=== PATIENT | female | born 1980 | race Caucasian/White ===

== ENCOUNTER 2024-10-02 15:32 | Emergency (ER) | payer OTHER, SELFPAY ==
--- NOTE | ~2024-10-02 | XR_ITS ---
EXAMINATION: XR hip RT min 2V DATE: 10/02/2024 16:02 INDICATION: Pain x10 days TECHNIQUE: 2 images of the right hips were obtained. COMPARISON: None. FINDINGS: Mild degenerative change in the right hip. No fracture. No dislocation. No significant degenerative change. IMPRESSION: 1. No fracture identified. If symptoms persist or worsen, consider a short-term follow-up study or additional imaging for further assessment. Reviewed, dictated and finalized at location Q. IMPRESSION: 1. No fracture identified. If symptoms persist or worsen, consider a short-term follow-up study or additio nal imaging for further assessment.
--- NOTE | 2024-10-02 15:34 | ED.GENADULT ---
HPI - General Adult General Chief complaint: Extremity Injury, Lower Stated complaint: leg and hip pain Time Seen by Provider: 10/02/24 15:42 Source: patient, RN notes reviewed and old records reviewed Mode of arrival: ambulatory Limitations: no limitations History of Present Illness HPI narrative: 44-year-old female presents to the [facility] with right leg pain for several weeks. Reports that she has contacted her doctor in regards to the pain in her leg. States it is a deep ache below the knee, to the side. No redness, swelling, injury. Patient reports intermittent numbness and tingling to the leg and 3 of her toes. When this happens and she stands she gets a tingling burning sensation. Denies any back pain or abdominal pain. Patient states it gets worse when she does change positions. Today for the last week she presents with right hip pain. States that it feels like it ?catches when she changes position. Denies injury to the area. Patient has reported taking Tylenol, ibuprofen, gabapentin. Also has tried her 's oxycodone Onset (ago): week(s) Treatments prior to arrival: NSAID Related Data Home Medications ?Medication ?Instructions ?Recorded ?Confirmed ?Last Taken ?Type atorvastatin 40 mg tablet mg 10/02/24 Unknown History dextroamphetamine-amphetamine 20 10/02/24 Unknown History mg tablet esomeprazole magnesium 20 mg 20 mg PO DAILY 10/02/24 10/02/24 Unknown History capsule,delayed release (Nexium) estradiol acetate 0.1 mg/24 hr vaginal 10/02/24 Unknown History vaginal ring (Femring) sertraline 50 mg tablet mg 10/02/24 Unknown History tirzepatide (weight loss) 7.5 7.5 mg subcut WEEKLY 10/02/24 10/02/24 Unknown History mg/0.5 mL subcutaneous pen injector (Zepbound) trazodone 100 mg tablet mg 10/02/24 Unknown History Allergies Allergy/AdvReac Type Severity Reaction Status Date / Time meloxicam Allergy Mild Rash Verified 10/02/24 15:45 Penicillins Allergy Mild Rash Verified 10/02/24 15:45 Sulfa (Sulfonamide Allergy Mild Rash Verified 10/02/24 15:45 Antibiotics) adhesive AdvReac Mild Other Verified 10/02/24 15:45 chlorhexidine AdvReac Mild Other Verified 10/02/24 15:45 Review of Systems Review of Systems: All systems reviewed & are unremarkable except as noted in HPI and below Constitutional: Constitutional: Reports no additional constitutional complaints Musculoskeletal: Musculoskeletal: Reports as per HPI, Denies back pain, Denies myalgias, Reports arthralgias, Denies joint swelling, Denies limited range of motion, Reports numbness and Reports tingling Integumentary/Breasts: Skin/Breast: Reports system reviewed and no additional complaints, except as docu PMFSH Comments At the time of my signature, I reviewed and agree with the nursing past medical, surgical, social, and family history. There is no relevant family history pertinent to the patient complaint. Exam Const: General: cooperative, healthy appearing, comfortable, no acute distress, well developed, alert and well nourished Nutritional Appearance: well nourished and obese Orientation/consciousness: patient oriented x3 Limitations: no limitations HENMT: Head: normal to inspection Eyes: General: appearance normal, both eyes and all related structures Alignment and Position: alignment normal Neck: Neck: normal visual inspection, full ROM, no lymphadenopathy and no meningeal signs Chest: Chest palpation & inspection: normal inspection of the chest Resp: Effort & Inspection: normal respiratory effort and able to speak in complete sentences Cardio: Rate: regular rate GI: GI Palp: No abdominal tenderness Back/Spine/Pelvis: Back: No erythema, No warmth, No sacral edema, No ecchymosis and No back tenderness Thoracic/Lumbar Spine: No thoracic spinal tenderness and No lumbar spinal tenderness Skin: General skin exam: normal color and no rashes or lesions noted Rashes: no rashes Neuro: General: patient oriented x3, gait normal, moves all extremities and no meningeal signs Cognition (Neuro): normal cognition Speech: normal speech Gait exam (Neuro): Normal gait present Extrem: General: normal to inspection, full ROM, capillary refill normal and normal gait Right lower extremity: normal to inspection, full ROM, hip/thigh Details: tenderness (Anterior) and normal ROM; no abrasions, no lacerations and no ecchymosis, lower leg Details: normal to inspection and no edema; no erythema, no tenderness, no localized swelling, no abrasions, no lacerations and no ecchymosis and ankle Details: normal to inspection, no edema and normal ROM; no swelling; no edema Psych: Appearance: grossly normal and well kempt Mental Status: mental status grossly normal Speech and movement: Normal speech and movement present and Clear speech present Affect: normal affect Attitude: cooperative Course Course Level of Care: Express Care Visit Vital Signs Vital signs: Vital Signs Temperature 97.6 F 10/02/24 15:43 Pulse Rate 100 10/02/24 15:43 Respiratory Rate 18 10/02/24 15:43 Blood Pressure 136/84 10/02/24 15:43 Pulse Oximetry 100 10/02/24 15:43 Oxygen Delivery Room Air 10/02/24 15:43 Temperature 97.6 F 10/02/24 15:43 Pulse Rate 100 10/02/24 15:43 Respiratory Rate 18 10/02/24 15:43 Blood Pressure 136/84 10/02/24 15:43 Pulse Oximetry 100 10/02/24 15:43 Oxygen Delivery Room Air 10/02/24 15:43 Reviewed Medical Decision Making MDM Narrative Medical decision making narrative: Patient sitting comfortably in exam room. Nontoxic, vitals stable. Patient in no acute distress Patient presents with several weeks of right leg pain, 1 week of right hip pain Patient's x-ray shows no acute findings of the hip. Patient is appropriate for outpatient treatment with close follow-up Discharge instructions reviewed with patient, as well as provided in writing per nursing staff. The instructions also include specific and strict return/GO TO THE ER as well as f/u information. All questions have been answered, and the patient deny any further questions with discharge and discharge plan. Some parts of this dictation were generated by voice recognition software and may contain typographical and/or grammatical inaccuracies. Differential Diagnosis Differential Diagnosis: Arthritis, ligament impingement, neuropathy Medical Records Medical records reviewed: Yes I reviewed the external patient's medical records. Vital Signs Vital Signs: Vital Signs Temperature 97.6 F 10/02/24 15:43 Pulse Rate 100 10/02/24 15:43 Respiratory Rate 18 10/02/24 15:43 Blood Pressure 136/84 10/02/24 15:43 Pulse Oximetry 100 10/02/24 15:43 Oxygen Delivery Room Air 10/02/24 15:43 Temperature 97.6 F 10/02/24 15:43 Pulse Rate 100 10/02/24 15:43 Respiratory Rate 18 10/02/24 15:43 Blood Pressure 136/84 10/02/24 15:43 Pulse Oximetry 100 10/02/24 15:43 Oxygen Delivery Room Air 10/02/24 15:43 Reviewed Lab Data Lab results reviewed: Yes I reviewed the patient's lab results. Labs: Reviewed Imaging Data Radiologist's impression: EXAMINATION: XR hip RT min 2V DATE: 10/02/2024 16:02 INDICATION: Pain x10 days TECHNIQUE: 2 images of the right hips were obtained. COMPARISON: None. FINDINGS: Mild degenerative change in the right hip. No fracture. No dislocation. No significant degenerative change. IMPRESSION: 1. No fracture identified. If symptoms persist or worsen, consider a short-term follow-up study or additional imaging for further assessment. Critical Care Time Critical Care Time Critical Care Time: No Discharge Plan Discharge Clinical Impression: Hip pain, right Patient Disposition: Home Condition: Stable Instructions: Antibiotic Form, Hip Pain (ED) Additional Instructions: Follow-up with your primary care provider for further evaluation, testing and treatment if symptoms persist Take Motrin alternating with Tylenol as needed for pain Patient Language: Estonian Prescriptions: No Action atorvastatin 40 mg tablet trazodone 100 mg tablet dextroamphetamine-amphetamine 20 mg tablet sertraline 50 mg tablet Femring 0.1 mg/24 hr ring VAGINAL esomeprazole magnesium [Nexium] 20 mg capsule,delayed release(DR/EC) 20 mg PO DAILY Zepbound 7.5 mg/0.5 mL pen injector 7.5 mg subcut WEEKLY Follow-up/Referrals: UNKNOWN,DOCTOR [Non-Staff] Time of Disposition: 16:28
--- OUTSIDE RECORDS SUMMARY | 2024-10-02 15:41 | XMS_ITS | Clinical Summary ---
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 Name Role Phone Maris Hall MD Unavailable [phone] Jesus Devries Primary Care Provider [phone] Allergies Active Allergy Reactions Criticality Noted Date Comments Adhesive Tape-Silicones Other (See comments),Swelling Medium 12/24/2020 Blistering and welts/redness Chlorhexidine Rash Medium 10/14/2020 redddness and heat to skin x 3 days Meloxicam Itching Low 06/11/2015 Penicillin G Itching Low 01/23/2006 Cefazolin administered 11/08/2020 Sulfa (Sulfonamide Antibiotics) Other (See comments) Low 04/29/2008 Pt never had-mother is allergic Medications Space Chamber with Medium Mask spacer as directed 01/30/[address] (NexIUM) 40 mg capsuleIndication s:Gastroesophagea l reflux disease with esophagitis without hemorrhage Take 1 capsule (40 mg total) by mouth daily before breakfast 90 capsule 1 03/24/19 22 Active medroxyPROGESTERo ne (PROVERA) 10 mg tablet Take 1 tablet (10 mg total) by mouth daily 11/03/19 22 Active Femring 0.1 mg/24 hr ring INSERT VAGINALLY EVERY 3 (THREE) MONTHS FOR 4 DOSES 12/27/19 22 Active albuterol HFA (PROVENTIL HFA,VENTOLIN HFA,PROAIR HFA) 90 mcg/actuation inhalerIndication s:Mild intermittent asthma without complication Inhale 1-2 puffs every 6 (six) hours as needed for wheezing or shortness of breath 1 each 2 09/21/19 23 Active sertraline (ZOLOFT) 50 mg tablet Take 1 tablet (50 mg total) by mouth daily Active pen needle, diabetic 32 gauge x needleIndications :DM type 2 with diabetic dyslipidemia (HCC) Once weekly 4 each 2 01/18/20 23 Active dulaglutide (TRULICITY) 1.5 mg/0.5 mL pen injectorIndicatio ns:DM type 2 with diabetic dyslipidemia (HCC) Inject 0.5 mL (1.5 mg total) under the skin every 7 days 2 mL 1 01/27/20 23 Active Trulicity 0.75 mg/0.5 mL pen injectorIndicatio ns:DM type 2 with diabetic dyslipidemia (HCC) INJECT 1 SYRINGE SUBCUTANEOUSLY ONCE A WEEK 4 mL 02/19/19 24 Active dextroamphetamine -amphetamine (ADDERALL) 20 mg tabletIndications :Attention deficit hyperactivity disorder (ADHD), predominantly inattentive type Take 1 tablet (20 mg total) by mouth 2 (two) times a day 60 tablet 04/06/19 24 Active Active Problems Problem Noted Date Diagnosed Date PTSD (post-traumatic stress disorder) 09/20/2022 Assessment & Plan (09/20/2022 12:46 PM CDT): Chronic condition not well controlled Start Lexapro 10 mg Abnormal uterine bleeding (AUB) 11/07/2021 Overview (03/01/2022): On HRT Postoperative hypotension 11/07/2021 Overview (03/01/2022): In October 2020, after BSO and mastectomy procedure COVID-19 10/21/2021 Fatty liver 03/24/2021 Allergic rhinitis 10/15/2020 Uncomplicated asthma 10/15/2020 Type 2 diabetes mellitus without complications 0 10/15/2020 Assessment & Plan (09/20/2022 12:29 PM CDT): Chronic Decrease ozempic 1mg 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 Assessment & Plan (07/29/2020 11:03 AM CDT): Chronic condition uncontrolled Increase nexium to 40mg COVID-19 virus infection 01/29/2020 Assessment & Plan (01/29/2020 2:54 PM BEND UP): intial diagnosis 01/06/2020 GERD (gastroesophageal reflux disease) 0 Assessment & Plan (11/18/2019 1:54 PM CDT): Well controlled on current regimen, no rx changes needed. Continue lifestyle modifications Assessment & Plan (08/21/2019 4:31 PM CDT): Well controlled on current regimen, no rx changes needed. Continue lifestyle modifications Dyslipidemia 08/21/2019 Assessment & Plan (11/29/2021 4:57 PM CDT): Chronic condition ldl 91 at most recent Order lipid panel in 3mo Assessment & Plan (08/21/2019 4:39 PM CDT): Start vascepa Lipid in 6mo copay card Mild intermittent asthma without complication Assessment & Plan (04/03/2019 2:44 PM BEND UP): Well controlled on current regimen, no rx changes needed. Continue lifestyle modifications RADHA (generalized anxiety disorder) 04/03/2019 Assessment & Plan (11/08/2022 11:11 PM CDT): Chronic stable but not at goal Continue Lexapro Start Vraylar Assessment & Plan (03/05/2022 9:44 PM BEND UP): Chronic stable improved with use of buspirone continue current dosing regimen Assessment & Plan (11/29/2021 5:00 PM CDT): Chronic and stable Continue and refill buspar Assessment & Plan (07/13/2021 1:10 PM CDT): Chronic condition Stable but persist Continue buspar Assessment & Plan (03/24/2021 4:44 PM BEND UP): Chronic condition not well controlled Increase BuSpar to 7.5 mg t.i.d. Assessment & Plan (12/02/2020 1:55 PM CDT): Chronic condition stable on BuSpar Continue to monitor. Assessment & Plan (07/22/2020 10:34 AM CDT): Chronic condition stable well controlled continue BuSpar Assessment & Plan (11/18/2019 1:54 PM CDT): Well controlled on current regimen, no rx changes needed. Continue lifestyle modifications Assessment & Plan (08/21/2019 4:31 PM CDT): Well controlled on current regimen, no rx changes needed. Continue lifestyle modifications Assessment & Plan (04/03/2019 2:44 PM BEND UP): Well controlled on current regimen, no rx changes needed. Continue lifestyle modifications Vitamin D deficiency 04/03/2019 Assessment & Plan (11/29/2021 4:59 PM CDT): Chronic Order vit d level in 3mo Assessment & Plan (04/03/2019 2:44 PM BEND UP): Well controlled on current regimen, no rx changes needed. Continue lifestyle modifications DM type 2 with diabetic dyslipidemia 04/03/2019 Assessment & Plan (01/17/2023 3:30 PM BEND UP): Chronic and experiencing poor control with elevation since not being on ozempic We will restart ozempic 1mg Repeat A1c in 3mo Once restart ozempic will d/c metformin Assessment & Plan (05/30/2022 4:15 PM CDT): Chronic stable D/c metformin Increase ozempic 2mg Assessment & Plan (03/05/2022 9:44 PM BEND UP): Chronic conditions stable reports no hypoglycemia Refill metformin Assessment & Plan (11/29/2021 4:58 PM CDT): Chronic last a1c 5.1 Order a1c in 3mo Continue with ozempic Refill today Assessment & Plan (07/13/2021 1:09 PM CDT): Chronic conditon Stable and well controlled with a1c 5.1 Assessment & Plan (03/24/2021 4:44 PM BEND UP): Chronic condition historically under good control last A1c 5.7 Order A1c continue with current regimen Assessment & Plan (12/02/2020 1:55 PM CDT): Chronic condition well-controlled last A1c 5.0 continue with current regimen of metformin and Ozempic. Assessment & Plan (07/22/2020 10:34 AM CDT): Chronic condition well-controlled A1c 5.7%. Assessment & Plan (04/15/2020 4:20 PM BEND UP): Chronic uncontrolled Order hga1c Start ozempic Assessment & Plan (08/21/2019 4:38 PM CDT): Start metfromin 850mg every day [id number] 6mo Assessment & Plan (04/03/2019 2:44 PM BEND UP): Well controlled on current regimen, no rx changes needed. Continue lifestyle modifications Disorder of refraction and accommodation 017 Female infertility 03/03/2014 Family history of malignant neoplasm of breast 0 03/28/2013 Overview (04/03/2019): Breast and ovarian cancers at an early age on maternal side of her family Family history of malignant neoplasm of breast 0 03/28/2013 Overview (03/24/2021): Breast and ovarian cancers at an early age on maternal side of her family ADHD (attention deficit hyperactivity disorder) 11/18/2012 Assessment & Plan (05/30/2022 4:17 PM CDT): Chronic condition stable well controlled Continue Adderall Assessment & Plan (03/05/2022 9:44 PM BEND UP): Chronic condition Well-controlled Continue Adderall. Refill appropriate dates Assessment & Plan (11/29/2021 5:02 PM CDT): Chronic and stable with adderall Continue and refill adderall Assessment & Plan (07/13/2021 1:07 PM CDT): Chronic condition Well controlled with adderall Refill meds Assessment & Plan (03/24/2021 4:44 PM BEND UP): Chronic conditions stable well controlled Refill Adderall Assessment & Plan (12/02/2020 1:55 PM CDT): Chronic and stable Continue Nexium. Assessment & Plan (07/22/2020 10:20 AM CDT): Chronic condition stable and well controlled Refill meds as date indicates Assessment & Plan (01/29/2020 3:04 PM BEND UP): Refill adderall Assessment & Plan (11/18/2019 1:54 PM CDT): Well controlled on current regimen, no rx changes needed. Continue lifestyle modifications Assessment & Plan (08/21/2019 4:32 PM CDT): Well controlled on current regimen, no rx changes needed. Continue lifestyle modifications Assessment & Plan (04/03/2019 2:44 PM BEND UP): Well controlled on current regimen, no rx changes needed. Continue lifestyle modifications PCOS (polycystic ovarian syndrome) 11/18/2012 Resolved Problems Problem Noted Date Diagnosed Date Resolved Date S/P bariatric surgery 03/24/20212021 Assessment & Plan (03/24/2021 4:45 PM BEND UP): Order labs to evaluate Biceps rupture, distal, left, sequela 11/01/2015 08/21/2019 Cubital tunnel syndrome, left 09/16/2015 08/21/2019 Low back pain 11/26/2014 08/21/2019 Immunizations Immunization Administration Dates Next Due H1N1 All Forms 12/25/2008 Influenza LAIV (Nasal) 12/15/2003 Influenza, Live, Intranasal, Quadrivalent 12/15/2003 Influenza, Quadrivalent, Spl it, Preservative Free, Intramuscular 11/09/2021,11/10/2008,11/19/2007,01/24,12/11/2002 Influenza, Trivalent, Preser vative Free, Intramuscular 11/10/2008,11/19/2007,01/24/2006,12/11 Influenza, Unspecified 01/17/2023(Deferr ed: Patient decision),04/03/2019(Deferred: Patient Refused) OPV 09/01/1985 PPD TEST 06/11/2003,08/26/2002,09/01/1985 Pneumococcal Polysaccharide PPV23 03/10/2009 TD Preservative Free 09/01/1985 Tdap 09/27/2016 Surgical History Surgery Date Site/Laterality Comments WISDOM TOOTH EXTRACTION 02/12/2018 - 02/11/2019 MASTECTOMY COMPLETE / SIMPLE 02/13/2020 - 02/11/2021 Alfonso ateral OVARY SURGERY 02/13/2020 - 02/11/2021 Bilateral BREAST SURGERY 11/10/2020 HYSTERECTOMY 11/10/2020 Medical History Medical History Date Comments Anxiety ADHD (attention deficit hyperactivity disorder) PCOS (polycystic ovarian syndrome) GERD (gastroesophageal reflux disease) Asthma Menstrual problem Covid-19 Diabetes mellitus (HCC) Family History Medical History Relation Name Comments No Known Problems Brother 1 No Known Problems Brother 2 No Known Problems Daughter Depression Father carrie Kidney disease Maternal Grandfather sonya No Known Problems Maternal Grandmother Depression Mother benoit Hyperlipidemia Mother benoit Hypertension Mother benoit Diabetes Paternal Grandfather sonya Heart attack Paternal Grandfather sonya Heart disease Paternal Grandfather sonya Diabetes Paternal Grandmother michaela No Known Problems Son Relation Name Status Comments Brother 1 Alive Brother 2 Alive Daughter Alive Father carrie Alive Maternal Grandfather sonya Maternal Grandmother Mother benoit Alive Paternal Grandfather sonya Paternal Grandmother michaela Alive Son Alive Social History Tobacco Use Types Packs/Day Years Used Date Smoking Tobacco: Never Smokeless Tobacco: Never Alcohol Use Standard Drinks/Week Comments Not Currently 0 (1 standard drink = 0.6 oz pur e alcohol) AUDIT-C Answer Date Recorded Q1: How often do you have a drink containing alcohol? Never 09/20/2022 Q2: How many drinks containi ng alcohol do you have on a typical day when you are drinking? Patient does not drink Q3: How often do you have si x or more drinks on one occasion? Never 09/20/2022 PHQ-2 Answer Date Recorded PHQ-2 Total Score (If total score is 3 or more points, staff should administer the PHQ-9) 0 03/01/2022 Personal Safety Answer Date Recorded Getting School Help Needed Not on file 01/23 Comments Unknown Sex and Gender Information Value Date Recorded Sex Assigned at Not on file Legal Sex Female 12:02 PM BEND UP Gender Identity Female 08/21/2019 2:02 PM CDT Sexual Orientation Not on file Obstetrics History Last Filed Vital Signs Vital Sign Reading Time Taken Comments Blood Pressure 128/72 09/20/2022 11:45 AM CDT Pulse 105 09/20/2022 11:45 AM CDT Temperature 36.2 C (97.1 F) 09/20/2022 11:45 AM CDT Respiratory Rate 21 09/20/2022 11:45 AM CDT Oxygen Saturation 99% 09/20/2022 11:45 AM CDT Inhaled Oxygen Concentration - - Weight 79.5 kg (175 lb 4.8 oz) 09/20/2022 11:45 AM CDT Height 162.6 cm (5' 4) 09/20/2022 11:45 AM CDT Body Mass Index 30.09 09/20/2022 11:45 AM CDT Plan of Treatment Health Maintenance Due Date Last Done Comments Foot Exam 1980 Hepatitis B Screening 02/04/1998 Varicella Vaccines (1 of 2 - 13+ 2-dose series) 01/12/2004 HPV Vaccines (1 - 3-dose SCD M series) 02/04/2007 Pneumococcal vaccine <65 (2 of 2 - PCV) 03/10/2010 03/10/2009 Dilated Eye Exam 05/18/2022 05/18/2021 Depression Screening 03/01/2023 03/01/2022, 03/24/2021, 12/02/2020, Additional history exists eGFR 05/28/2023 05/27/2022 Regular Well Visit/Exam 18-64 09/21/2023 09/20/2022 Covid-19 Vaccine (3 - 2023-2 5 season) 2023 03/08/2020, 02/09/2020 Hemoglobin A1C 10/21/2023 04/20/2023, 041 06/2022, 07/03/2020, Additional history exists Albumin Creatinine Ratio, Urine 04/19/2024 Lipid Panel 04/19/2024 04/20/2023, 0406/2022, 05/30/2021, Additional history exists Influenza Vaccine (#1) 2024 2, 11/10/2008, 11/10/2008, Additional history exists DTaP/Tdap/Td Vaccine (2 - Td or Tdap) 09/27/2026 09/27/2016, 09/01/1985 Cervical Cancer Screening Discontinued 10/27/2018 Breast Cancer Screening-Mammogram Discontinued 05/14/2020, 05/14/2020, 11/01/2018, Additional history exists Hepatitis C Screening Completed 07/03/2020 Procedures Procedure Name Priority Date/Time Associated Diagnosis Comments EGFR Routine 05/27/2022 9:10 AM CDT DM type 2 with diabetic dyslipidemia (HCC) Dyslipidemia HEMOGLOBIN A1C Routine 05/27/2022 9:10 AM CDT DM type 2 with diabetic dyslipidemia (HCC) Dyslipidemia LIPID PANEL Routine 05/27/2022 9:10 AM CDT DM type 2 with diabetic dyslipidemia (HCC) Dyslipidemia DIABETIC EYE EXAM Routine 05/18/2021 HEPATITIS PANEL, ACUTE Routine 07/03/2020 10:26 AM CDT Elevated liver enzymes HM MAMMOGRAPHY Routine 05/14/2020 HM PAP SMEAR WITH HPV Routine 10/27/2018 from Last 3 Months or Most Recently Relevant to Health Maintenance Results * eGFR (05/27/2022 9:10 AM CDT) eGFR 111 mL/min/1. 73 m2 VERONICA MARTINEZ Comment: Interpretive Data Reference Interval Normal >/= 90 mL/min/1.73m2 Mildly decreased* 60 - 89 mL/min/1.73m2 Mildly to moderately decreased 45 - 59 mL/min/1.73m2 Moderately to severely decreased 30 - 44 mL/min/1.73m2 Severely decreased 15 - 29 mL/min/1.73m2 Kidney Failure < 15 mL/min/1.73m2 *Relative to young adult level Estimated glomerular filtration rate is determined by the 2020 CKD-EPI equation recommended by the National Kidney Foundation (A Unifying Approach to GFR Estimation: Recommendations of the NKF-ASK Task Force on Reassessing the Inclusion of Race in Diagnosing Kidney Disease, JASN 2020). The CKD-EPI equation should not be used for patients with unstable renal function and has not been validated in children and those over 70. Current interpretive data was last reviewed 2020. Testing performed by: [facility], [address] [place] [address], [place]., [address] Blood 05/27/2022 9:10 AM CDT 05/27/2022 9:29 AM CDT us [facility] BLOOD ORDERABLES Final Resu lt VERONICA MARTINEZ [address] [facility] Department [place] [address] * Hemoglobin A1c (05/27/2022 9:10 AM CDT) Hgb A1C 5.1 4.0 - 5.6 % VERONICA Comment:Testing performed by : [address] [address] Estimated Average Glucose 100 mg/dL VERONICA Comment: The ADA recommends reporting an estimated Average Glucose (eAG) with all Hemoglobin A1c results using the equation derived from a study of 507 normal and diabetic adults. Minority populations were underrepresented and children were not included. (Diabetes Care 31:0015-7753, 2008). The eAG is not equivalent to a fasting glucose. Testing performed by: [address] [address] Blood 05/27/2022 9:10 AM CDT 05/27/2022 9:29 AM CDT us [facility] BLOOD ORDERABLES Final Resu lt [facility] [address] [facility] [employer] [place] [address] * Lipid panel (05/27/2022 9:10 AM CDT) Pathologist [facility] Cholesterol 180 30 - 199 mg/dL VERONICA Comment: Interpretive Data Ages < or = 19 years Acceptable: <170 mg/dL Borderline high: 170-199 mg/dL High: >or= 200 mg/dL Ages > or = 20 years Desirable: <200 mg/dL Borderline high: 200-239 mg/dL High: >or= 240 mg/dL Literature References: 1. Expert Panel on Integrated Guidelines for Cardiovascular Health and Risk Reduction in Children and Adolescents. Pediatrics 2011;128:S213 2. NCEP Expert Panel. Circulation 2004;110:227 Current Interpretive Data was last revised on 2017. Testing performed by: [address] [address] Triglycerides 94 <=149 mg/dL VERONICA Comment: Interpretive Data Ages < or = 9 years Acceptable: <75 mg/dL Borderline high: 75-99 mg/dL High: >or= 100 mg/dL Ages 10 to 20 years Acceptable: <90 mg/dL Borderline high: 90-129 mg/dL High: >or= 130 mg/dL Ages > or = 20 years Desirable: <150 mg/dL Borderline high: 150-199 mg/dL High: 200-499 mg/dL Very high: >or= 499 mg/dL Literature References: 1. Expert Panel on Integrated Guidelines for Cardiovascular Health and Risk Reduction in Children and Adolescents. Pediatrics 2011;128:S213 2. NCEP Expert Panel. Circulation 2004;110:227 Current Interpretive Data was last revised on 2017. Testing performed by: [address] [address] HDL 44 >=40 mg/dL VERONICA Comment: Interpretive Data Ages < or = 19 years Acceptable: >45 mg/dL Borderline low: 40-45 mg/dL Low: <40 mg/dL Ages > or = 20 years Desirable: >or= 60 mg/dL Low: <40 mg/dL Literature References: 1. Expert Panel on Integrated Guidelines for Cardiovascular Health and Risk Reduction in Children and Adolescents. Pediatrics 2011;128:S213 2. NCEP Expert Panel. Circulation 2004;110:227 Current Interpretive Data was last revised on 2017. Testing performed by: [address] [address] LDL, calculated 117 <=129 mg/dL VERONICA Comment: Interpretive Data Ages < or = 19 years Acceptable: <110 mg/dL Borderline high: 110-129 mg/dL High: >or= 130 mg/dL Ages > or = 20 years Optimal: <100 mg/dL Near optimal: 100-129 mg/dL Borderline high: 130-159 mg/dL High: >160 mg/dL Literature References: 1. Expert Panel on Integrated Guidelines for Cardiovascular Health and Risk Reduction in Children and Adolescents. Pediatrics 2011;128:S213 2. NCEP Expert Panel. Circulation 2004;110:227 Current Interpretive Data was last revised on 2017. Testing performed by: [address] [address] Non-HDL Cholesterol 136 mg/dL VERONICA Comment: Interpretive Data Ages < or = 19 years Acceptable: <120 mg/dL Borderline high: 120-144 mg/dL High: >145 mg/dL Ages > or = 20 years When triglycerides are >200 mg/dL, Non-HDL cholesterol is a secondary target of therapy with treatment goals that are 30 mg/dL greater than the LDL cholesterol target. Literature References: 1. Expert Panel on Integrated Guidelines for Cardiovascular Health and Risk Reduction in Children and Adolescents. Pediatrics 2011;128:S213 2. NCEP Expert Panel. Circulation 2004;110:227 Current Interpretive Data was last revised on 2017. Testing performed by: [facility], [address] [place] [address]., [address] Chol/HDL ratio 4 VERONICA Comment:Testing performed by : [address] [address] Blood 05/27/2022 9:10 AM CDT 05/27/2022 9:29 AM CDT Jesus ROMERO [facility] BLOOD ORDERABLES Final Resu lt VERONICA [address] [facility] Department [place] [address] * Diabetic Eye Exam (05/18/2021) Historical Provider MD HEALTH MAINTENANCE Final Result * Hepatitis panel, acute (07/03/2020 10:26 AM CDT) HepBsAg NONREACT NONREACTIVE [facility] Comment: Siemens CentaurXP using CAT (chemiluminescent immunoassay) technology. NONREACTIVE: IgM antibodies to Hepatitis B Surface antigen not detected. REACTIVE: IgM antibodies to Hepatitis B Surface antigen detected. Reactive results will be confirmed by neutralization testing. HBsAb qn 3.86 mIU/mL [facility] Comment: Siemens CentaurXP using CAT (chemiluminescent immunoassay) technology. 9.99 IU/L or less.....NONREACTIVE: IgM antibodies to Hepatitis B Surface antibody are not detected. 10.00 IU/L or greater..REACTIVE: IgM antibodies to Hepatitis B Surface antibody are detected. Hep B core IgM NONREACT NONREACTIVE [facility] Comment: Siemens CentaurXP using CAT (chemiluminescent immunoassay) technology. NONREACTIVE: IgM antibodies to Hepatitis B Core antigen not detected. EQUIVOCAL: IgM antibodies to Hepatitis B Core antigen may or may not be present. Obtain a new specimen and retest. REACTIVE: IgM antibodies to Hepatitis B Core antigen detected. Hep A IgM NONREACT NONREACTIVE [facility] Comment: Siemens CentaurXP using CTA (chemiluminescent immunoassay) technology. NONREACTIVE: IgM antibodies to Hepatitis A not detected. This does not exclude possibility of exposure to Hepatitis A or early acute infection. EQUIVOCAL:IgM antibodies to Hepatitis A may or may not be present. Suggest recollection and retest. REACTIVE: Antibodies to Hepatitis A detected. Hep C Ab NONREACT NONREACTIVE [facility] Comment: Siemens CentaurXP using CAT (chemiluminescent immunoassay) technology. NONREACTIVE: Antibodies to Hepatitis C not detected. This does not exclude early acute Hepatitis C infection, possibility of exposure to Hepatitis C, antibodies below detection limit, or to lack of antibody reactivity to the antigen used in this assay. EQUIVOCAL: Antibodies to Hepatitis C may or may not be present. Sample to be confirmed by real-time PCR method. REACTIVE: Antibodies to Hepatitis C detected.Sample to be confirmed by real-time PCR method. Blood specimen (specimen) 07/03/2020 10:26 AM CDT 07/03/2020 10:46 AM CDT Narrative Resulting Agency Comment CLI [facility] MICROBIOLOGY - GENERAL ADIS ROBERTS Final Result [place] [place], [place] [id number] [place] [address] * MAMMOGRAPHY (05/14/2020) Historical Provider HEALTH MAINTENANCE Final Result * PAP SMEAR WITH HPV (10/27/2018) Pap smear Normal Historical Provider HEALTH MAINTENANCE Final Result from Last 3 Months or Most Recently Relevant to Health Maintenance Insurance [facility] Member Subscriber Plan / Payer (Ef fective 2023-Present) Name:Chata Day Relation to Subscriber:Self Name:Chata Day Payer ID:[id number] (NAIC) Type: ALLIANCE Address: [address] [place] [id number] Care Teams 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
--- OUTSIDE RECORDS SUMMARY | 2024-10-02 15:41 | XMS_ITS | Encounter Summary ---
Author Organization [facility] Address [address] [place] [address] Care Team Providers Care Taxation Agent Name Role Phone Angela Peña LINER CHECKER Primary Care Provider [phone] Meena Mireles LINER CHECKER Primary Care Provider [phone] None, Provider MD Primary Care Provider Unavaila ble Encounter Details Date Type Department Care Team (Late st Contact Info) Description 04/25/2023 [employer] Message [facility] [id number] [place] [address] Angela Peña, LINER CHECKER [address] [place] [id number] Dexcom auth Social History Tobacco Use Types Packs/Day Years Used Date Smoking Tobacco: Never Passive Smoke Exposure: Past Smokeless Tobacco: Never Alcohol Use Standard Drinks/Week Comments No 0 (1 standard drink = 0.6 oz pur e alcohol) AUDIT-C Answer Date Recorded Frequency of Alcohol Consumption Never 03/07/2018 Average Number of Drinks Not on file 019 Frequency of Binge Drinking Not on file 02/13 Comments No Sex and Gender Information Value Date Recorded Sex Assigned at Female 08/25/2024 8:01 PM CDT Legal Sex Female 4:02 PM RN ADMIT Gender Identity Female 08/25/2024 8:01 PM CDT Sexual Orientation Not on file documented as of this encounter Plan of Treatment Not on file documented as of this encounter Visit Diagnoses Not on filedocumented in this encounter Care Teams Taxation Agent Relationship Specialty Start Date End Date Angela Peña NP PCP - General 04/22/23 09/27/23 Meena Mireles NP PCP - General NURSE PRACTITIONER 09/28/23 07/31/24 None, Provider, PCP - General UNKNOWN PHYSICIAN SPECIALTY 08/25/24 documented as of this encounter
--- OUTSIDE RECORDS SUMMARY | 2024-10-02 15:41 | XMS_ITS | Encounter Summary ---
Author Organization [facility] Address [address] [place] [address] Care Team Providers Care Contact Lens Manufacturer Name Role Phone Angela Peña QUICK SKETCH ARTIST Primary Care Provider [phone] Meena Mireles QUICK SKETCH ARTIST Primary Care Provider [phone] None, Provider MD Primary Care Provider Unavaila ble Encounter Details Date Type Department Care Team (Late st Contact Info) Description 05/24/2023 [employer] Message [facility] [id number] [address] [place] [address] Angela Peña QUICK SKETCH ARTIST [address] [place] [address] referral endo Social History Tobacco Use Types Packs/Day Years [...] PM CDT 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
--- OUTSIDE RECORDS SUMMARY | 2024-10-02 15:41 | XMS_ITS | Encounter Summary ---
Author Organization [facility] Address [address] [place] [address] Care Team Providers Care [place] Name Role Phone Angela Peña EGG PASTEURIZER Primary Care Provider Meena Mireles EGG PASTEURIZER Primary Care Provider [phone] None, Provider Primary Care Provider Unavaila ble Encounter Details Date Type Department Care Team (Late st Contact Info) Description 06/04/2023 [employer] Message [facility] [id number] [place] [address] Angela Peña EGG PASTEURIZER [address] [place] [address] Metformin Social History Tobacco Use Types Packs/Day Years [...] PM CDT 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
--- OUTSIDE RECORDS SUMMARY | 2024-10-02 15:41 | XMS_ITS | Clinical Summary ---
Author Organization [facility] Address [address] [place] [address] Care Team Providers Care [place] Attorney Name Role Phone Lola Aguirre MD Primary Care Prov ider Allergies Active Allergy Reactions Criticality Noted Date Comments Adhesive Tape-Silicones Other (See Comments),Swelling Medium 12/24/2020 Blistering and welts/redness Chlorhexidine Rash Medium 10/14/2020 redddness and heat to skin x 3 days redddness and heat to skin x 3 days redddness and heat to skin x 3 days redddness and heat to skin x 3 days Duloxetine Other (See Comments) Low 05/01/2012 unk Meloxicam Itching Low 06/11/2015 Penicillin G Itching Low 01/23/2006 Cefazolin administered 11/08/2020 Sulfa (Sulfonamide Antibiotics) Other (See Comments),Hives High 04/29/2008 Pt never had-mother is allergic Medications dextroamphetamine- amphetamine (ADDERALL) 20 mg tablet Take 40 mg by mouth daily. Active dextroamphetamine- amphetamine (ADDERALL) 20 mg tablet Take 20 mg by mouth 2 times daily. 08/08/19 23 Active ergocalciferol (VITAMIN D2) 50,000 unit capsule Take 50,000 Units by mouth. 03/01/19 23 Active sertraline (ZOLOFT) 50 mg tablet Take 1 Tablet (50 mg) by mouth daily in the morning. 90 Tablet 1 4:09 PM CDT 11/13/19 24 Active Additional Information Patient not taking.Reported on 09/02/2024 gabapentin (NEURONTIN) 100 mg capsule Take 1 Capsule (100 mg) by mouth daily at bedtime. 30 Capsule 4 5:34 PM SCREED PERSON 01/03/20 24 Active Estradiol Acetate (Femring) 0.1 mg/24 hr Ring Insert 1 ring vaginally every 3 months as directed 1 Each 3 5 11:37 AM CDT 03/10/19 25 Active medroxyPROGESTERon e (PROVERA) 10 mg tablet Take 10 mg by mouth. 11/27/19 24 Active esomeprazole (NexIUM) 40 mg Capsule, Delayed Release(E.C.) Take 40 mg by mouth daily in the morning. 03/24/19 Active sertraline (ZOLOFT) 100 mg tablet Take 100 mg by mouth daily. Active albuterol sulfate HFA 90 mcg/actuation aerosol inhalerIndications :Mild intermittent asthma without complication Take 2 Puffs by inhalation every 4 hours as needed for Shortness of Breath or Wheezing. 8.5 Gram 2 5 4:09 PM CDT 09/03/19 25 Active atorvastatin (LIPITOR) 40 mg tabletIndications: Mixed hyperlipidemia Take 1 Tablet (40 mg) by mouth daily. 100 Tablet 3 5 11:37 AM CDT 09/20/19 25 Active dextroamphetamine- amphetamine (AdderalL) 20 mg tablet Take 1.5 Tablets (30 mg) by mouth daily in the morning and 1 tablet at 1:00 pm. Max Daily Amount: 30 mg 75 Tablet 09/27/19 25 Active Blood-Glucose Sensor Device Change sensor every 10 days as directed. 3 Each 09/30/19 25 Active dextroamphetamine- amphetamine (AdderalL) 20 mg tablet Take 1.5 Tablets (30 mg) by mouth daily in the morning AND 1 Tablet (20 mg) daily at 1:00 pm. 75 Tablet 5 4:09 PM CDT 08/26/19 25 025 Discontinu ed(Reorder ) Blood-Glucose Sensor Device Change sensor every 10 days as directed. 3 Each 5 4:09 PM CDT 08/27/19 25 025 Discontinu ed(Reorder ) predniSONE (DELTASONE) 20 mg tabletIndications: Paresthesia of right leg Take 1 Tablet (20 mg) by mouth daily for 7 days. 7 Tablet 5 4:09 PM CDT 09/03/19 25 025 Active Problems Problem Noted Date Diagnosed Date Reactive hypoglycemia 09/02/2024 Abnormal uterine bleeding (AUB) 11/07/2021 Overview (04/25/2023): On HRT On HRT On HRT On HRT On HRT Fatty liver 03/24/2021 BRCA1 positive 08/13/2020 Dyslipidemia 08/21/2019 Overview (04/25/2023): Last Assessment & Plan: Chronic condition ldl 91 at most recent Order lipid panel in 3mo Last Assessment & Plan: Chronic condition ldl 91 at most recent Order lipid panel in 3mo Last Assessment & Plan: Chronic condition ldl 91 at most recent Order lipid panel in 3mo GERD (gastroesophageal reflux disease) 0 Overview (04/25/2023): Last Assessment & Plan: Well controlled on current regimen, no rx changes needed. Continue lifestyle modifications Last Assessment & Plan: Well controlled on current regimen, no rx changes needed. Continue lifestyle modifications DM type 2 with diabetic dyslipidemia 04/03/2019 Overview (04/25/2023): Last Assessment & Plan: Chronic stable D/c metformin Increase ozempic 2mg Last Assessment & Plan: Chronic and experiencing poor control with elevation since not being on ozempic We will restart ozempic 1mg Repeat A1c in 3mo Once restart ozempic will d/c metformin Last Assessment & Plan: Chronic and experiencing poor control with elevation since not being on ozempic We will restart ozempic 1mg Repeat A1c in 3mo Once restart ozempic will d/c metformin RADHA (generalized anxiety disorder) 04/03/2019 Overview (04/25/2023): Last Assessment & Plan: Chronic stable improved with use of buspirone continue current dosing regimen Last Assessment & Plan: Chronic stable but not at goal Continue Lexapro Start Vraylar Last Assessment & Plan: Chronic stable but not at goal Continue Lexapro Start Vraylar Last Assessment & Plan: Chronic stable but not at goal Continue Lexapro Start Vraylar Mild intermittent asthma without complication Overview (04/25/2023): Last Assessment & Plan: Well controlled on current regimen, no rx changes needed. Continue lifestyle modifications Last Assessment & Plan: Well controlled on current regimen, no rx changes needed. Continue lifestyle modifications Last Assessment & Plan: Well controlled on current regimen, no rx changes needed. Continue lifestyle modifications Vitamin D deficiency 04/03/2019 Overview (04/25/2023): Last Assessment & Plan: Chronic Order vit d level in 3mo Last Assessment & Plan: Chronic Order vit d level in 3mo Last Assessment & Plan: Chronic Order vit d level in 3mo Family history of malignant neoplasm of breast 0 03/28/2013 Overview (04/25/2023): Breast and ovarian cancers at an early age on maternal side of her family Breast and ovarian cancers at an early age on maternal side of her family Breast and ovarian cancers at an early age on maternal side of her family Breast and ovarian cancers at an early age on maternal side of her family Breast and ovarian cancers at an early age on maternal side of her family Breast and ovarian cancers at an early age on maternal side of her family Attention deficit hyperactivity disorder (ADHD) 11/18/2012 Overview (04/25/2023): Last Assessment & Plan: Chronic condition stable well controlled Continue Adderall Last Assessment & Plan: Chronic condition stable well controlled Continue Adderall Last Assessment & Plan: Chronic condition stable well controlled Continue Adderall PCOS (polycystic ovarian syndrome) 11/18/2012 Resolved Problems Problem Noted Date Diagnosed Date Resolved Date Postoperative hypotension 11/07/2021 Overview (04/25/2023): In October 2020, after BSO and mastectomy procedure In October 2020, after BSO and mastectomy procedure In October 2020, after BSO and mastectomy procedure In October 2020, after BSO and mastectomy procedure In October 2020, after BSO and mastectomy procedure Allergic rhinitis 10/15/2020 09/02/2024 Uncomplicated asthma 10/15/2020 025 Gastroesophageal reflux dise ase with esophagitis without hemorrhage 07/29/2020 Overview (04/25/2023): Last Assessment & Plan: Chronic well controlled Order b12 level Continue Nexium Last Assessment & Plan: Chronic well controlled Order b12 level Continue Nexium Last Assessment & Plan: Chronic well controlled Order b12 level Continue Nexium Disease due to severe acute respiratory syndrome coronavirus 2 (SARS-CoV-2) 01/29/202008/13 Overview (04/25/2023): Last Assessment & Plan: intial diagnosis 01/06/2020 Last Assessment & Plan: intial diagnosis 01/06/2020 Last Assessment & Plan: intial diagnosis 01/06/2020 Allergic conjunctivitis of both eyes 11/15/2016 09/02/2024 Disorder of refraction and accommodation 11/15/2016 09/02/2024 Cough 09/20/2016 09/02/2024 Biceps rupture, distal, left, sequela 11/01/2015 09/02/2024 Cubital tunnel syndrome, left 09/16/2015 09/02/2024 Pain in left hip 12/01/2014 09/02/2024 Low back pain 11/26/2014 09/02/2024 Female infertility 03/03/2014 Encounters Date Type Department Care Team Description 10/01/2024 External Device Data [facility] ABSTRACTION Provider, Abstract 09/19/2024 Results Follow-Up [address] [address] Juju Henderson PA-C POC HEMOGLOBIN A1C, CBC WITH DIFFERENTIAL, COMPREHENSIVE METABOLIC PANEL, Additional followed-up results: 4 09/04/[address] [phone] Juju Henderson PA-C Medication Review 09/02/2024 2:30 PM CDT Office Visit [address] [phone] Juju Henderson PA-C Wellness examination (Primary Dx); Reactive hypoglycemia; Glucose intolerance; Dyslipidemia; Mild intermittent asthma without complication; Paresthesia of right leg; Attention deficit hyperactivity disorder (ADHD), combined type; RADHA (generalized anxiety disorder); BRCA1 positive; Need for hepatitis C screening test; Screening for HIV (human immunodeficiency virus) 08/27/2024 External Device Data [facility] ABSTRACTION Provider, Abstract from Last 3 Months Immunizations Immunization Administration Dates Next Due (ADACEL/BOOSTRIX)(10 YR UP) TDAP VACCINE, 0.5ML, IM 09/27/2016 (PNEUMOVAX 23)(50 YRS UP) PN EUMOCOCCAL POLYSACCHARIDE (PPV23) 0.5 ML, IM 03/10/2009 (PREVNAR 20)(6 WKS UP) PNEUM OCOCCAL CONJUGATE VACCINE 20-VALENT (PCV20), POLYSACCHARIDE [id number] CONJUGATE, ADJUVANT 0.5 ML (PF) IM 09/28/2023 (TENIVAC)(7 YRS UP) TETANUS AND DIPHTHERIA TOXOIDS, ADSORBED (5 LF OF TETANUS TOXOID AND 2 LF OF DIPHTHERIA TOXOID), 0.5ML (PF), IM 09/01/1985 INFLUENZA VACCINE QUADRIVALE NT 2-49 YRS NASAL 12/15/2003,12/15/2003 Influenza Seasonal Unspecifi ed Formulation PF IM 11/10/2008,11/19/2007,01/24/2006,12/11 Influenza Vaccine Nasal 12/15/2003 Influenza, Unspecified Formulation 11/09,11/10/2008,11/19/2007,01/24,12/11/2002 Novel [id number], All Formulations 12/25/2008 Poliovirus Vaccine Live Oral 09/01/1985 Family History Medical History Relation Name Comments Depression Father carrie Breast Cancer Maternal Grandmother titus Colon Cancer Maternal Grandmother titus Ovarian Cancer Maternal Grandmother titus Depression Mother benoit Colon Cancer Paternal Grandfather sonya Heart Disease Paternal Grandfather sonya Kidney Disease Paternal Grandfather sonya ended up on dialysis Diabetes Paternal Grandmother michaela Relation Name Status Comments Father carrie Alive Maternal Grandmother titus Alive Mother benoit Alive Paternal Grandfather sonya Alive Paternal Grandmother michaela Alive Social History Tobacco Use Types Packs/Day Years Used Date Smoking Tobacco: Never Tobacco Cessation:Counseling Given: Not Answered Alcohol Use Standard Drinks/Week Comments Never 0 (1 standard drink = 0.6 oz pur e alcohol) Feeling Safe Answer Date Recorded Are you in a relationship wi th someone who hurts you emotionally and/or physically? No 06/21/2023 Comments No Sex and Gender Information Value Date Recorded Sex Assigned at Not on file Legal Sex Female 5:40 PM CDT Gender Identity Not on file Sexual Orientation Not on file Last Filed Vital Signs Vital Sign Reading Time Taken Comments Blood Pressure 112/72 09/02/2024 1:51 PM CDT Pulse 88 09/02/2024 1:51 PM CDT Temperature 36.3 C (97.3 F) 06/21/2023 10:00 PM CDT Respiratory Rate 16 09/02/2024 1:51 PM CDT Oxygen Saturation 98% 09/02/2024 1:51 PM CDT Inhaled Oxygen Concentration - - Weight 95.7 kg (211 lb) 09/02/2024 1:51 PM CDT Height 162.6 cm (5' 4) 09/02/2024 1:51 PM CDT Body Mass Index 36.22 09/02/2024 1:51 PM CDT Plan of Treatment Upcoming Encounters Date Type Department Care Team (Late st Contact Info) Description 12/03/2024 2:30 PM CDT Office Visit [facility] [address] [phone] Juju Henderson PA-C [address] [place] [phone] 03/19/2025 2:00 PM SCREED PERSON Office Visit [facility] [address] [place] [address] Vanessa Magaña MD [address] [place] [address] 09/02/2025 1:00 PM CDT Office Visit [address] [phone] Juju Henderson PA-C [address] [place] [phone] Health Maintenance Due Date Last Done Comments HPV VACCINES (1 - 3-dose series) 02/04/1995 DIABETES ANNUAL FOOT EXAM 02/04/1998 DIABETES MICROALBUMIN ANNUAL SCREEN 02/04/1998 HEPATITIS B VACCINES (1 of 3 - 19+ 3-dose series) 02/04/1999 DIABETES ANNUAL RETINAL EXAM 12/18/2018 12/18/2017, 11/15/2016 BREAST CANCER SCREENING 10/15/2021 10/16/19 21, 05/14/2020, 05/14/2020, Additional history exists COVID-19 Vaccine (2023-2 5 season) 2023 03/08/2020, 02/09/2020 INFLUENZA VACCINE (#1) 2024 9, 11/19/2007, 01/24/2006, Additional history exists DIABETES HBA1C Q 6 MONTHS 03/05/20252024, 07/03/2023, 04/20/2023, Additional history exists DIABETES: A1C (Auto Order) 09/02/202509/02, 07/03/2023, 04/20/2023, Additional history exists LDL CHOLESTEROL ANNUAL 09/18/2025 09/18/2024 DTAP/TDAP/TD VACCINES (2 - T d or Tdap) 09/27/2026 09/27/2016, 09/01/1985 Preventative Visit- Commercial Completed 0 09/02/2024, 09/20/2022, 04/06/2021, Additional history exists Procedures Procedure Name Priority Date/Time Associated Diagnosis Comments HEPATITIS C ANTIBODY Routine 09/18/2024 10:20 AM CDT Wellness examination Need for hepatitis C screening test HIV DETECTION W/REFLX CONFIRMATION Routine 09/18/2024 10:20 AM CDT Wellness examination Screening for HIV (human immunodeficiency virus) TSH REFLEXIVE Routine 09/18/2024 10:20 AM CDT Wellness examination LIPID PANEL Routine 09/18/2024 10:20 AM CDT Wellness examination Dyslipidemia COMPREHENSIVE METABOLIC PANEL Routine 09/18/2024 10:20 AM CDT Wellness examination CBC WITH DIFFERENTIAL Routine 09/18/2024 10:20 AM CDT Wellness examination POC HEMOGLOBIN A1C Routine 09/02/2024 2: 34 PM CDT from Last 3 Months Results * HIV DETECTION W/REFLX CONFIRMATION (09/18/2024 10:20 AM CDT) [facility] RES[facility] Comment: Quest component Name and Code: HIV FINAL INTERPRETATION [[id number]] HIV Negative HIV-1 antigen and HIV-1/HIV-2 antibodies were not detected. There is no laboratory evidence of HIV infection. HIV-1/2 AG AND AB SCREEN NON-REACT OSMAN NON-REACT OSMAN [facility] Comment: Test Performed at: [facility] [id number] [place] [address] Sumit Abel MD Blood 09/18/2024 10:2 0 AM CDT 09/18/2024 10:20 AM CDT Juju Beatriz ROMERO-C CHEMISTRY ORDERABLES Final Res ult Performing Organization Address [facility] de Phone Number [facility] [phone] [facility] [address] [place] [address] * TSH REFLEXIVE (09/18/2024 10:20 AM CDT) TSH 0.56 mIU/L [facility] Comment: Reference Range > or = 20 Years 0.40-4.50 Ranges First trimester 0.26-2.66 Second trimester 0.55-2.73 Third trimester 0.43-2.91 FASTING:YES FASTING: YES Test Performed at: [facility] [address] [place] [phone] Sumit Abel MD Blood 09/18/2024 10:2 0 AM CDT 09/18/2024 10:20 AM CDT Jujukari ROMERO-C CHEMISTRY ORDERABLES Final Res ult Performing Organization Address [facility] de Phone Number [facility] [phone] [facility] [address] [place] [phone] * HEPATITIS C ANTIBODY W REFLEX (09/18/2024 10:20 AM CDT) HEPATITIS C AB NON-REACTI VE NON-REACT OSMAN [facility] Comment: HCV antibody was non-reactive. There is no laboratory evidence of HCV infection. In most cases, no further action is required. However, if recent HCV exposure is suspected, a test for HCV RNA (test code 00936) is suggested. For additional information please refer to http://education.Playdate App/faq/WSZ95j7 (This link is being provided for informational/ educational purposes only.) FASTING:YES FASTING: YES Test Performed at: [facility] [address] [place] [address] Sumit Abel MD Blood 09/18/2024 10:2 0 AM CDT 09/18/2024 10:20 AM CDT Juju Henderson PA-C CHEMISTRY ORDERABLES Final Res ult [facility] [phone] [facility] [address] [phone] * (ABNORMAL) CBC WITH DIFFERENTIAL (09/18/2024 10:20 AM CDT) WBC 8.8 3.8 - 10.8 Thousand/u L [facility] RBC 4.66 3.80 - 5.10 Million/uL [facility] HEMOGLOBIN 12.7 11.7 - 15.5 g/dL [facility] HEMATOCRIT 40.4 35.0 - 45.0 % [facility] MCV 86.7 80.0 - 100.0 fL [facility] MCH 27.3 27.0 - 33.0 pg [facility] MCHC 31.4(L) 32.0 - 36.0 g/dL [facility] Comment: For adults, a slight decrease in the calculated MCHC value (in the range of 30 to 32 g/dL) is most likely not clinically significant; however, it should be interpreted with caution in correlation with other red cell parameters and the patient's clinical condition. RDW 14.0 11.0 - 15.0 % [facility] PLATELETS 250 140 - 400 Thousand/u L [facility] MPV 10.1 7.5 - 12.5 fL [facility] NEUTROPHIL ABSOLUTE 6,538 1,500 - 7,800 cells/uL [facility] LYMPHOCYTE ABSOLUTE 1,681 850 - 3,900 cells/uL [facility] MONOCYTE ABSOLUTE 510 200 - 950 cells/uL [facility] EOSINOPHIL ABSOLUTE 44 15 - 500 cells/uL [facility] BASOPHILS ABSOLUTE 26 0 - 200 cells/uL [facility] NEUTROPHIL 74.3 % [facility] LYMPHOCYTES 19.1 % [facility] MONOCYTE 5.8 % [facility] EOSINOPHILS 0.5 % [facility] BASOPHILS 0.3 % [facility] Comment: FASTING:YES FASTING: YES Test Performed at: [facility] [address] [facility] [place] [address] Sumit Abel MD Blood 09/18/2024 10:2 0 AM CDT 09/18/2024 10:20 AM CDT us Juju Henderson PA-C HEMATOLOGY ORDERABLES Final Re sult [facility] [phone] [facility] [address] [facility] [place] [address] * (ABNORMAL) LIPID PANEL (09/18/2024 10:20 AM CDT) CHOLESTEROL 185 <200 mg/dL [facility] HDL 40(L) > OR = 50 mg/dL [facility] TRIGLYCERIDE 254(H) <150 mg/dL [facility] Comment: If a non-fasting specimen was collected, consider repeat triglyceride testing on a fasting specimen if clinically indicated. Tammi et al. J. of Clin. Lipidol. 2015;9:129-169. LDL CALCULATED 109(H) mg/dL (calc) [facility] Comment: Reference range: <100 Desirable range <100 mg/dL for primary prevention; <70 mg/dL for patients with CHD or diabetic patients with > or = 2 CHD risk factors. LDL-C is now calculated using the Giselle calculation, which is a validated novel method providing better accuracy than the Friedewald equation in the estimation of LDL-C. Luis F COTA et al. LOIS. 2013;310(19): 6274-2957 (http://education.Jobzella.Busuu/faq/DNI414) CHOL/HDL RATIO 4.6 <5.0 (calc) [facility] NON-HDL CHOLESTEROL 145(H) <130 mg/dL (calc) [facility] Comment: For patients with diabetes plus 1 major ASCVD risk factor, treating to a non-HDL-C goal of <100 mg/dL (LDL-C of <70 mg/dL) is considered a therapeutic option. Test Performed at: [facility] [address] [place] [address] Sumit Abel MD Blood 09/18/2024 10:2 0 AM CDT 09/18/2024 10:20 AM CDT us Juju Henderson PA-C CHEMISTRY ORDERABLES Final Res ult [facility] [phone] [facility] [address] [place] [address] * (ABNORMAL) COMPREHENSIVE METABOLIC PANEL (09/18/2024 10:20 AM CDT) GLUCOSE 106(H) 65 - 99 mg/dL [facility] Comment: Fasting reference interval For someone without known diabetes, a glucose value between 100 and 125 mg/dL is consistent with prediabetes and should be confirmed with a follow-up test. BUN 15 7 - 25 mg/dL [facility] CREATININE 0.77 0.50 - 0.99 mg/dL [facility] GFR 97 > OR = 60 mL/min/1. 73m2 [facility] BUN/CREAT RATIO SEE NOTE: 6 - 22 (calc) [facility] Comment: Not Reported: BUN and Creatinine are within reference range. SODIUM 139 135 - 146 mmol/L [facility] POTASSIUM 4.3 3.5 - 5.3 mmol/L [facility] CHLORIDE 103 98 - 110 mmol/L [facility] CO2 27 20 - 32 mmol/L [facility] CALCIUM 9.9 8.6 - 10.2 mg/dL [facility] TOTAL PROTEIN 7.0 6.1 - 8.1 g/dL [facility] ALBUMIN 4.5 3.6 - 5.1 g/dL [facility] GLOBULIN 2.5 1.9 - 3.7 g/dL (calc) [facility] ALBUMIN/GLOBULIN RATIO 1.8 1.0 - 2.5 (calc) [facility] BILIRUBIN TOTAL 0.4 0.2 - 1.2 mg/dL [facility] ALKALINE PHOSPHATASE 85 31 - 125 U/L [facility] AST 17 10 - 30 U/L [facility] ALT 22 6 - 29 U/L [facility] Comment: FASTING:YES FASTING: YES Test [facility]formed [facility]: [facility] [address] [facility] [place] [address] Sumit Abel MD Blood 09/18/2024 10:2 0 AM CDT 09/18/2024 10:20 AM CDT Juju Henderson PA-C CHEMISTRY ORDERABLES Final Res ult [facility] [phone] [facility] [address] [place] [address] * POC HEMOGLOBIN A1C (09/02/2024 2:34 PM CDT) HGB A1C POC 5.7 4.0 - 6.0 % [facility] KIT LOT NUMBER POC [address] [facility] KIT EXP DATE POC 05/2026 [facility] Blood, capillary 09/02/2024 2:34 PM CDT Juju Henderson PA-C POINT OF CARE TESTING Final Re sult [facility] CLIA# [id number] [address] [place] [phone] from Last 3 Months Insurance [employer] [facility] [employer] Commercial RX [employer] Member Subscriber Plan / Payer (Ef fective 2024-Present) Name:Chata Day Relation to Subscriber:Not on file Name:Chata Day Subscriber ID:Not on file Date of :1980 Payer ID:Not on file Type:Not on file Address: [place] [facility] [employer] Member Subscriber Plan / Payer (Ef fective for All Dates) Name:Chata Day Relation to Subscriber:Self Name:Chata Day Payer ID:Not on file Type:RX Commercial Address: [place] [place] Care Teams [place] Attorney Relationship Specialty Start Date End Date Lola Aguirre MD [address] [place] [phone] PCP - General Family Practice 09/02/24
--- OUTSIDE RECORDS SUMMARY | 2024-10-02 15:41 | XMS_ITS | Encounter Summary ---
Author Organization [facility] Address [address] [place] [address] Care Team Providers Care Grad Intern Name Role Phone Angela Peña DEPOSITION OPERATOR Primary Care Provider [phone] Meena Mireles DEPOSITION OPERATOR Primary Care Provider None, Provider MD Primary Care Provider Unavaila ble Encounter Details Date Type Department Care Team (Late st Contact Info) Description 06/20/2023 [employer] Message [facility] [address] [place] [address] Angela Peña, DEPOSITION OPERATOR [address] [place] [address] c-peptide Social History Tobacco Use Types Packs/Day Years Used Date Smoking Tobacco: Never Passive Smoke Exposure: Past Smokeless Tobacco: Never Alcohol Use Standard Drinks/Week Comments No 0 (1 standard drink = 0.6 oz pur e alcohol) AUDIT-C Answer Date Recorded Frequency of Alcohol Consumption Never 03/07/2018 Average Number of Drinks Not on file 019 Frequency of Binge Drinking Not on file 02/13 PHQ-2 Answer Date Recorded Patient Health Questionnaire-2 Score 0 06/15/2023 Comments No Sex and Gender Information Value Date Recorded Sex Assigned at Female 08/25/2024 8:01 PM CDT Legal Sex Female 4:02 PM SOCIAL WORKER Gender Identity Female 08/25/2024 8:01 PM CDT Sexual Orientation Not on file documented as of this encounter Plan of Treatment Not on file documented as of this encounter Visit Diagnoses Not on filedocumented in this encounter Care Teams Grad Intern Relationship Specialty Start Date End Date Angela Peña NP PCP - General 04/22/23 09/27/23 Meena Mireles NP PCP - General NURSE PRACTITIONER 09/28/23 07/31/24 None, Provider, PCP - General UNKNOWN PHYSICIAN SPECIALTY 08/25/24 documented as of this encounter
--- OUTSIDE RECORDS SUMMARY | 2024-10-02 15:41 | XMS_ITS | Clinical Summary ---
Author Organization [facility] Address [address] [place] [address] Care Team Providers Care Forest Technician Name Role Phone None, Provider MD Primary Care Provider Unavaila ble Allergies Active Allergy Reactions Criticality Noted Date Comments Chlorhexidine Rash Medium 10/14/2020 redddness and heat to skin x 3 days redddness and heat to skin x 3 days Duloxetine Other (see comment) Low 05/01/2012 unk Meloxicam Itching Low 03/07/2018 Penicillin G Itching Low 01/23/2006 Cefazolin administered 11/08/2020 Sulfa Antibiotics Hives,Other (see comment) Low 04/29/2008 Pt never had-mother is allergic Tape Other (see comment),Swelling Medium 12/24/2020 Blistering and welts/redness Medications esomeprazole (NEXIUM) 40 MG capsule Take 1 capsule (40 mg total) by mouth every morning. Active medroxyPROGESTERo ne (PROVERA) 10 MG tablet Take 1 tablet (10 mg total) by mouth daily. Active FEMRING 0.1 MG/24HR RING INSERT VAGINALLY EVERY THREE MONTHS Active Continuous Blood Gluc Automatic Hemmer (DEXCOM G7 RISK CONTROL OFFICER) DeviceIndications :Type 2 diabetes mellitus without complication, without long-term current use of insulin ([facility] HHS/[facility]),Multiple episodes of hypoglycemia 1 each by Does not apply route 4 (four) times daily before meals and nightly. 1 each 04/23/19 Active albuterol sulfate HFA 108 (90 Base) MCG/ACT inhalerIndication s:Mild intermittent asthma without complication ([facility]) Inhale 2 puffs into the lungs every 4 (four) hours as needed for Wheezing or Shortness of breath. 18 g 2 05/18/19 24 Active Beclomethasone Diprop HFA (QVAR REDIHALER) 80 MCG/ACT AEROSOL, BREATH ACTIVATEDIndicati ons:Mild intermittent asthma without complication (HHS/HCC) Inhale 1-2 puffs into the lungs 2 (two) times daily. 10.6 g 3 05/23/19 24 Active sertraline (ZOLOFT) 50 MG tabletIndications :ARDHA (generalized anxiety disorder) Take 1 tablet (50 mg total) by mouth every morning. 30 tablet 1 08/13/19 24 Active amphetamine-dextr oamphetamine (ADDERALL) 20 MG tabletIndications :Attention deficit hyperactivity disorder (ADHD), unspecified ADHD type Take 2 tablets (40 mg total) by mouth daily. 60 tablet 09/21/19 24 Active acarbose (PRECOSE) 50 MG tablet Take 1 tablet (50 mg total) by mouth. 07/24/19 24 Active traZODone (DESYREL) 100 MG tablet Take 1 tablet (100 mg total) by mouth. Patient takes either 50 or 100mg 08/14/19 24 Active Continuous Glucose Sensor (DEXCOM G7 SENSOR) MiscIndications:T ype 2 diabetes mellitus without complication, without long-term current use of insulin ([facility] HHS/HCC),Multiple episodes of hypoglycemia Change sensor every 10 days as directed. 3 each 09/30/19 25 Active Continuous Glucose Sensor (DEXCOM G7 SENSOR) MiscIndications:T ype 2 diabetes mellitus without complication, without long-term current use of insulin ([facility] HHS/HCC),Multiple episodes of hypoglycemia Change sensor every 10 days as directed 3 each 08/27/19 25 025 Discontinued Active Problems Problem Noted Date Diagnosed Date Adrenal adenoma, right 07/02/2023 Overview (09/27/2023): Last Assessment & Plan: Check dexamethasone suppression test and screen metanephrines Further workup pending laboratory results. She is status post salpingo-oophorectomy in 2020 PTSD (post-traumatic stress disorder) 09/20/2022 Overview (04/23/2023): Last Assessment & Plan: Chronic condition not well controlled Start Lexapro 10 mg Fatty liver 03/24/2021 Allergic rhinitis 10/15/2020 BRCA1 positive 08/13/2020 Gastroesophageal reflux dise ase with esophagitis without hemorrhage 07/29/2020 Overview (04/23/2023): Last Assessment & Plan: Chronic well controlled Order b12 level Continue Nexium Dyslipidemia 08/21/2019 Overview (04/23/2023): Last Assessment & Plan: Chronic condition ldl 91 at most recent Order lipid panel in 3mo Type 2 diabetes mellitus wit hout complications (CMS/HCC HHS/HCC) 04/03/2019 Overview (04/23/2023): Last Assessment & Plan: Chronic and experiencing poor control with elevation since not being on ozempic We will restart ozempic 1mg Repeat A1c in 3mo Once restart ozempic will d/c metformin Last Assessment & Plan: Chronic Decrease ozempic 1mg RADHA (generalized anxiety disorder) 04/03/2019 Overview (04/23/2023): Last Assessment & Plan: Chronic stable but not at goal Continue Lexapro Start Vraylar Mild intermittent asthma without complication (H HS/HCC) 04/03/2019 Overview (04/23/2023): Last Assessment & Plan: Well controlled on current regimen, no rx changes needed. Continue lifestyle modifications Vitamin D deficiency 04/03/2019 Overview (04/23/2023): Last Assessment & Plan: Chronic Order vit d level in 3mo Disorder of refraction and accommodation 017 Family history of malignant neoplasm of breast 0 03/28/2013 Overview (04/23/2023): Breast and ovarian cancers at an early age on maternal side of her family Breast and ovarian cancers at an early age on maternal side of her family Breast and ovarian cancers at an early age on maternal side of her family Attention deficit hyperactivity disorder (ADHD) 11/18/2012 Overview (04/23/2023): Last Assessment & Plan: Chronic condition stable well controlled Continue Adderall PCOS (polycystic ovarian syndrome) 11/18/2012 Resolved Problems Problem Noted Date Diagnosed Date Resolved Date Abnormal uterine bleeding (AUB) 11/07/2021 10/25/2023 Overview (04/23/2023): On HRT On HRT Postoperative hypotension 11/07/2021 Overview (04/23/2023): In October 2020, after BSO and mastectomy procedure In October 2020, after BSO and mastectomy procedure Disease due to severe acute respiratory syndrome coronavirus 2 (SARS-CoV-2) 01/29/202010/13 Overview (04/23/2023): Last Assessment & Plan: intial diagnosis 01/06/2020 GERD (gastroesophageal reflux disease) 08/21/2019 09/27/2023 Overview (06/15/2023): Last Assessment & Plan: Well controlled on current regimen, no rx changes needed. Continue lifestyle modifications Last Assessment & Plan: Well controlled on current regimen, no rx changes needed. Continue lifestyle modifications Biceps rupture, distal, left, sequela 11/01/2015 10/25/2023 Cubital tunnel syndrome, left 09/16/2015 10/25/2023 Pain in left hip 12/01/2014 10/25/2023 Low back pain 11/26/2014 10/25/2023 Female infertility 03/03/2014 Encounters Date Type Department Care Team Description 08/25/2024 5:58 PM CDT - 08/25/2024 8:01 PM CDT Emergency [facility] Emergency Services [facility] [place] [address] Jose Shaw MD Hypoglycemia Discharge Disposition: Home or Self Care (Routine Discharge) 08/25/2024 Travel from Last 3 Months Immunizations Immunization Administration Dates Next Due H1N1 2009 Influenza Vaccine 12/25/2008 Influenza (FluMist) 12/15/2003 Influenza (Generic) 11/10/2008, 8,01/24/2006,2002 Influenza Adult (Generic) 11/09/2021 Pneumococcal (Pneumovax 23) 03/10/2009 Pneumococcal (Prevnar 20) 09/28/2023 Polio Opv (Generic) 09/01/1985 Td, Adsorbed, Preservative F ree, Adult Use, Lf Unspecified 09/01/1985 Tdap (Generic) 09/27/2016 Family History Medical History Relation Comments Cancer Father Hypertension Father Cancer Mother Hypertension Mother Relation Status Comments Father Alive Mother Alive Social History Tobacco Use Types Packs/Day Years Used Date Smoking Tobacco: Never Passive Smoke Exposure: Past Smokeless Tobacco: Never Tobacco Cessation:Counseling Given: No Alcohol Use Standard Drinks/Week Comments No 0 (1 standard drink = 0.6 oz pur e alcohol) AUDIT-C Answer Date Recorded Frequency of Alcohol Consumption Never 03/07/2018 Average Number of Drinks Not on file 019 Frequency of Binge Drinking Not on file 02/13 PHQ-2 Answer Date Recorded Patient Health Questionnaire-2 Score 0 09/28/2023 Comments No Sex and Gender Information Value Date Recorded Sex Assigned at Female 08/25/2024 8:01 PM CDT Legal Sex Female 4:02 PM WHITE SHOE RAGGER Gender Identity Female 08/25/2024 8:01 PM CDT Sexual Orientation Not on file Last Filed Vital Signs Vital Sign Reading Time Taken Comments Blood Pressure 136/76 08/25/2024 8:00 PM CDT Pulse 81 08/25/2024 8:00 PM CDT Temperature 36.7 C (98 F) 08/25/2024 8:00 PM CDT Respiratory Rate 14 08/25/2024 8:00 PM CDT Oxygen Saturation 98% 08/25/2024 8:00 PM CDT Inhaled Oxygen Concentration - - Weight 90.7 kg (200 lb) 08/25/2024 6:15 PM CDT Height 162.6 cm (5' 4) 08/25/2024 6:15 PM CDT Body Mass Index 34.33 08/25/2024 6:15 PM CDT Plan of Treatment Health Maintenance Due Date Last Done Comments Kidney Health Evaluation 1980 Annual Physical 02/04/1983 Diabetes: Retinopathy Eye Exam 02/04/1998 Hepatitis B Vaccines (1 of 3 - 19+ 3-dose series) 02/04/1999 HPV Vaccines (1 - 3-dose SCDM series) 02/04/2007 Mammogram Screening 10/15/2022 10/15/2020, 05/14/2020, 11/01/2018, Additional history exists COVID-19 Vaccine ( season) 2023 03/08/2020, 02/09/2020 Hemoglobin A1C 01/03/2024 07/03/2023, 03/0 09/2023, 05/27/2022, Additional history exists PHQ-2 (Physician Martin) 02/13/2024 09/28/2023 Lipid Panel 10/07/2024 10/08/2023, 03/0 09/2023, 05/27/2022, Additional history exists DTaP, Tdap and Td Vaccines (2 - Td or Tdap) 09/27/2026 09/27/2016, 09/01/1985 Pneumococcal Vaccine: Pediatrics (0 to 5 Years) and At-Risk Patients (6 to 49 Years) Completed 09/28/2023, 03/10/2009 Hepatitis C Completed 10/08/2023 Meningococcal B Vaccine Aged Out No l onger eligible based on patient's age to complete this topic Meningococcal Vaccine Aged Out No naye narendra eligible based on patient's age to complete this topic RSV Immunizations Under 20 Months Aged Out No longer eligible based on patient's age to complete this topic Procedures Procedure Name Priority Date/Time Associated Diagnosis Comments POCT GLUCOSE - DOCKED DEVICE Routine 08/25/2024 7:48 PM CDT COMPREHENSIVE METABOLIC PANEL STAT 08/25/2024 6:15 PM CDT CBC W/DIFF AUTOMATED STAT 08/25/2024 6:15 PM CDT POCT GLUCOSE - DOCKED DEVICE Routine 08/25/2024 6:09 PM CDT HEPATITIS C ANTIBODY Routine 10/08/2023 7:08 AM CDT Encounter for hepatitis C screening test for low risk patient LIPID PANEL Routine 10/08/2023 7:08 AM CDT Dyslipidemia HEMOGLOBIN, GLYCOSYLATED Routine 07/03/2023 7:37 AM CDT Type 2 diabetes mellitus without complication, without long-term current use of insulin from Last 3 Months or Most Recently Relevant to Health Maintenance Results * POCT glucose (08/25/2024 7:48 PM CDT) Only the most recent of2 resultswithin the time period is included. [facility] GLUCOSE POC 90 70 - 99 MG/DL 08/25/2024 7:51 PM CDT [facility] 08/25/2024 7:48 PM CDT us Jose Shaw MD POCT ORDERABLES - DEVICE Fi nal Result [facility] [address] [place] [address] [place] [address], [place] * (ABNORMAL) COMPREHENSIVE METABOLIC PANEL (08/25/2024 6:15 PM CDT) [facility] GLUCOSE 97 70 - 99 MG/DL 08/25/2024 7:12 PM CDT [facility] BUN 20(H) 7 - 18 MG/DL 08/25/2024 7:12 PM CDT [facility] CREATININE S/P/B 0.73 0.50 - 1.20 MG/DL 08/25/2024 7:12 PM CDT [facility] SODIUM S/P/B 135(L) 136 - 145 MMOL/L 08/25/2024 7:12 PM CDT [facility] POTASSIUM S/P/B 3.6 3.5 - 5.1 MMOL/L 08/25/2024 7:12 PM CDT [facility] CHLORIDE S/P/B 102 100 - 108 MMOL/L 08/25/2024 7:12 PM CDT [facility] CO2 24.5 21.0 - 32.0 MMOL/L 08/25/2024 7:12 PM CDT [facility] CALCIUM S/P/B 8.7 8.5 - 10.1 MG/DL 08/25/2024 7:12 PM CDT [facility] BILIRUBIN TOTAL S/P/B 0.3 0.2 - 1.2 MG/DL 08/25/2024 7:12 PM CDT [facility] Comment: THIS ASSAY IS NOT RECOMMENDED FOR PATIENTS UNDERGOING TREATMENT WITH ELTROMBOPAG DUE TO THE POTENTIAL FOR FALSELY ELEVATED RESULTS. TOTAL PROTEIN S/P/B 7.5 6.4 - 8.2 G/DL 08/25/2024 7:12 PM CDT [facility] ALBUMIN S/P/B 4.2 3.4 - 5.0 G/DL 08/25/2024 7:12 PM CDT [facility] AST 23 15 - 37 U/L 08/25/2024 7:12 PM CDT [facility] ALT 37 14 - 55 U/L 08/25/2024 7:12 PM CDT [facility] ALKALINE PHOSPHATASE S/P/B 111 50 - 136 U/L 08/25/2024 7:12 PM CDT [facility] ANION GAP 8.5 5.0 - 15.0 MMOL/L 08/25/2024 7:12 PM CDT [facility] BUN CREATININE RATIO 27.4(H) 6 - 26 08/25/2024 7:12 PM CDT [facility] A/G RATIO 1.3 1.0 - 2.5 RATIO 08/25/2024 7:12 PM CDT [facility] GFR ESTIMATE >90 >90 ML/MIN/1.7 3 M2 08/25/2024 7:12 PM CDT [facility] Comment: NOTE: eGFR is not calculated for patients <18 years of age. This is an estimated GFR calculation using the new CKD EPI creatinine equation without race and so does not require a correction factor for race. This estimated GFR should not be used for calculating drug doses. 08/25/2024 6:15 PM CDT us Jose Shaw MD LABORATORY Final Resul t [address] [place] [address], * (ABNORMAL) CBC W/DIFF AUTOMATED (08/25/2024 6:15 PM CDT) WBC 9.02 4.50 - 11.00 x10'3/uL 08/25/2024 6:45 PM CDT [facility] RBC 4.43 4.00 - 5.20 x10'6/uL 08/25/2024 6:45 PM CDT [facility] HGB 12.0 12.0 - 16.0 G/DL 08/25/2024 6:45 PM CDT [facility] HCT 37.5(L) 38.0 - 48.0 % 08/25/2024 6:45 PM CDT [facility] MCV 84.7 80.0 - 100.0 FL 08/25/2024 6:45 PM CDT [facility] MCH 27.1 26.0 - 34.0 PG 08/25/2024 6:45 PM CDT [facility] MCHC 32.0 31.0 - 37.0 G/DL 08/25/2024 6:45 PM CDT [facility] RDW 14.0 11.6 - 14.8 % 08/25/2024 6:45 PM CDT [facility] PLT 305 130 - 400 x10'3/uL 08/25/2024 6:45 PM CDT [facility] MPV 10.1 7.0 - 12.0 FL 08/25/2024 6:45 PM CDT [facility] CBC COMMENT AUTOMATED RBC MORPHOLOGY AND PLATELET EVALUATION NORMAL 08/25/2024 6:45 PM CDT [facility] NEUTROPHILS % 71.2 40.0 - 74.0 % 08/25/2024 6:45 PM CDT [facility] LYMPHOCYTES % 21.1 14.0 - 46.0 % 08/25/2024 6:45 PM CDT [facility] MONOCYTES % 6.4 4.0 - 13.0 % 08/25/2024 6:45 PM CDT [facility] EOSINOPHILS 0.8 0.0 - 7.0 % 08/25/2024 6:45 PM CDT [facility] BASOPHILS 0.2 0.0 - 3.0 % 08/25/2024 6:45 PM CDT [facility] IMMATURE GRANS % 0.3 0.0 - 0.43 % 08/25/2024 6:45 PM CDT [facility] NRBC % 0.0 % 08/25/2024 6:45 PM CDT [facility] ABS. NEUTROPHILS TOTAL 6.42 1.69 - 7.81 x10'3/uL 08/25/2024 6:45 PM CDT [facility] ABS. LYMPHOCYTES 1.90 0.21 - 5.42 x10'3/uL 08/25/2024 6:45 PM CDT [facility] ABS. MONOCYTES 0.58 0.04 - 1.37 x10'3/uL 08/25/2024 6:45 PM CDT [facility] ABS. EOSINOPHILS 0.07 0.00 - 0.68 x10'3/uL 08/25/2024 6:45 PM CDT [facility] ABS. BASOPHILS 0.02 0.00 - 0.08 x10'3/uL 08/25/2024 6:45 PM CDT [facility] ABS. IMMATURE GRANULOCYTES 0.03 0.00 - 0.06 x10'3/uL 08/25/2024 6:45 PM CDT [facility] ABS. NUCLEATED RBC'S 0.00 0.00 - 0.01 x10'3/uL 08/25/2024 6:45 PM CDT [facility] 08/25/2024 6:15 PM CDT Jose Shaw MD LABORATORY Final Resul t [facility] [address] [place] [address], * (ABNORMAL) LIPID PANEL (10/08/2023 7:08 AM CDT) CHOLESTEROL 174 <200 MG/DL 10/08/2023 7:45 AM CDT [facility] TRIGLYCERIDES 148 <150 MG/DL 10/08/2023 7:45 AM CDT [facility] HDL 40(L) >40.0 MG/DL 10/08/2023 7:45 AM CDT [facility] LDL (CALCULATED) 104(H) <100 MG/DL 10/08/2023 7:45 AM CDT [facility] NON HDL CHOLESTEROL 134(H) <130 MG/DL 10/08/2023 7:45 AM CDT [facility] Comment: NOTE: WHEN THE TRIGLYCERIDES ARE >200 mg/dL, NON HDL C IS A SECONDARY TARGET OF THERAPY, WITH A GOAL 30 mg/dL HIGHER THAN THE IDENTIFIED LDL C GOAL. CHOL/HDL RATIO 4.4 0.0 - 4.5 10/08/2023 7:45 AM CDT [facility] VLDL CALCULATION 30 5 - 55 MG/DL 10/08/2023 7:45 AM CDT [facility] LIPID INTERPRETATION 10/08/2023 7:45 AM CDT [facility] Comment: NIH CONCENSUS REPORT RECOMMENDATIONS: ADULT CHILD LOW RISK: CHOLESTEROL <200 <170 TRIGLYCERIDE <150 --- HDL >=60 --- LDL <100 <110 BORDERLINE: CHOLESTEROL 200-239 170-199 TRIGLYCERIDE 150-199 --- HDL 40-59 --- LDL 100-159 110-129 HIGH RISK: CHOLESTEROL >=240 >=200 TRIGLYCERIDE >=200 --- HDL <40 --- LDL >=160 >=130 10/08/2023 7:08 AM CDT us Melisa Novak SCHEDULING REPRESENTATIVE LABORATORY Final Res ult Performing Organization Address [facility]/ZIP Co de Phone Number [facility] [address] [place] [address], [place] [phone] * HEPATITIS C ANTIBODY (10/08/2023 7:08 AM CDT) HEPATITIS C AB NON-REACTI VE NON-REACTI VE 10/08/2023 3:[address] [facility] 10/08/2023 7:08 AM CDT Melisa Novak SCHEDULING REPRESENTATIVE LABORATORY Final Res ult Performing Organization Address City/[facility]/ZIP Co de Phone Number [facility] [address] [place] [address], [place] [phone] * HEMOGLOBIN, GLYCOSYLATED (07/03/2023 7:37 AM CDT) HGB A1C 5.5 <5.7 % 07/03/2023 6:53 PM CDT [facility] Comment: ADA GUIDELINES 2010 5.7 TO 6.4% INCREASED RISK OF DIABETES > OR = 6.5% CONSISTENT WITH DIABETES TESTING PERFORMED AT [facility] [id number] [place] [address] ESTIMATED AVG GLUCOSE 111 mg/dL 07/03/2023 6:53 PM CDT [facility] 07/03/2023 7:37 AM CDT Angela Peña NP LABORATORY Final Result Performing Organization Address City/State/[facility] Co de Phone Number [facility] [address] [place] [address], [place] [phone] from Last 3 Months or Most Recently Relevant to Health Maintenance Insurance [facility] Care Teams Forest Technician Relationship Specialty Start Date End Date None, Provider, MD PCP - General UNKNOWN PHYSICIAN SPECIALTY 08/25/24
--- OUTSIDE RECORDS SUMMARY | 2024-10-02 15:41 | XMS_ITS | Clinical Summary ---
Author Organization [facility] [employer] Address [address] [place] [address] Care Team Providers Care Food Service Utility Worker Name Role Phone Unavailable Primary Care Provider Unavailabl e Source Comments [facility] [employer],non-owned Affiliates and Associated Physician Practices is amultiple site organization consisting of ambulatory clinics and hospital sitesin [place], [place], [place] and [place]. This disclosure is being madepursuant to the Care Everywhere program and may not contain all information available regarding this patient. Last updated 17.[facility] [employer] Social History Tobacco Use Types Packs/Day Years Used Date Smoking Tobacco: Never Assessed Comments Unknown Sex and Gender Information Value Date Recorded Sex Assigned at Not on file Legal Sex Female 4:58 PM CDT Gender Identity Not on file Sexual Orientation Not on file Plan of Treatment Health Maintenance Due Date Last Done Comments MAMMOGRAM 1980 HIV SCREENING 02/04/1995 HEPATITIS C SCREENING 01/31/1998 DTAP/TDAP/TD VACCINES (1 - Tdap) 02/04/1999 HEPATITIS B VACCINE (1 of 3 - 19+ 3-dose series) 02/04/1999 HPV VACCINE (1 - 3-dose SCDM series) 02/04/2007 COVID-19 VACCINE ( season) 2023 DEPRESSION SCREENING 02/13/2024 LIPID TESTING 07/25/2024 07/26/2019 INFLUENZA VACCINE (#1) 2024 9, 11/10/2008, 11/19/2007, Additional history exists ZOSTER VACCINE (1 of 2) 02/04/2030 HIB VACCINE Aged Out No longer eligi ble based on patient's age to complete this topic MENINGOCOCCAL (Group B) VACCINE SHARED DECISION-MAKING Aged Out No longer eligible based on patient's age to complete this topic MENINGOCOCCAL GROUPS A/C/Y/W VACCINE Aged Out No longer eligible based on patient's age to complete this topic PNEUMOCOCCAL VACCINE Aged Out No long er eligible based on patient's age to complete this topic
--- OUTSIDE RECORDS SUMMARY | 2024-10-02 15:41 | XMS_ITS | Encounter Summary ---
Author Organization [facility] Address [address] [place] [address] Care Team Providers Care Derivatives Trader Name Role Phone Timothy Lola Villegas MD Primary Care [facility] ide Encounter Details Date Type Department Care Team (Latest Contact Info) Description 09/19/2024 Results Follow-Up [address] [address] Juju Henderson PA-C [address] [place] [phone] POC HEMOGLOBIN A1C, CBC WITH DIFFERENTIAL, COMPREHENSIVE METABOLIC PANEL, Additional followed-up results: 4 Social History Tobacco Use Types Packs/Day Years Used Date Smoking Tobacco: Never Alcohol Use Standard Drinks/Week Comments Never 0 [...] on file Sexual Orientation Not on file documented as of this encounter Plan of Treatment Upcoming Encounters Date Type Department Care Team (Late st Contact Info) Description 12/03/2024 2:30 PM CDT Office Visit [address] [address] Juju Henderson PA-C [address] [place] [phone] 03/19/2025 2:00 PM WEAVING SUPERVISOR Office Visit [facility] Endocrinology [address] [place] [address] Vanessa Magaña MD [address] [place] [address] 09/02/2025 1:00 PM CDT Office Visit [facility] PRIMARY [facility]ARE [address] [address] Juju Henderson PA-C [address] [place] [phone] documented as of this encounter Visit Diagnoses Diagnosis Mixed hyperlipidemia- Primary documented in this encounter Care Teams Derivatives Trader Relationship Specialty Start Date End Date Lola Aguirre MD [address] [place] [phone] PCP - General Family Practice 09/02/24 documented as of this encounter
--- OUTSIDE RECORDS SUMMARY | 2024-10-02 15:41 | XMS_ITS | Encounter Summary ---
Author Organization [facility] Address [address] [place] [address] Care Team Providers Care Rn School Name Role Phone Lola Aguirre MD Primary Care [facility] Encounter Details Date Type Department Care Team (Late Contact Info) Description 10/01/2024 External Device Data [facility] ABSTRACTION Provider, Abstract NO ADDRESS ON FILE Social History Tobacco Use Types Packs/Day Years [...] Encounters Date Type Department Care Team (Late Contact Info) Description 12/03/2024 2:30 PM CDT Office Visit [facility] [address] [id number] Juju Henderson PA-C [address] [place] [phone] 03/19/2025 2:00 PM [employer] Office Visit [facility] [address] [facility] [address] [place] [phone] Vanessa Magaña MD [address] [facility] [address] [place] [phone] 09/02/2025 1:00 PM CDT Office Visit [facility] [address] [place] [address] Juju Henderson PA-C [address] [place] [phone] documented as of this encounter Visit Diagnoses Not on filedocumented in this encounter Care Teams Rn School Relationship Specialty Start Date End Date Lola Aguirre MD [address] [place] [phone] PCP - General Family Practice 09/02/24 documented as of this encounter
[2024-10-02 15:43] VITALS: BP 136/84; PULSE 100; RESP 18; TEMP 36.4; O2SAT 100
== END 2024-10-02 16:33 | disposition home or self-care (01) ==
PROVIDERS: Emergency Provider Nurse Practitioner
DX: M25.551 Pain in right hip (principal); K21.9 Gastro-esophageal reflux disease without esophagitis; E78.00 Pure hypercholesterolemia, unspecified; F98.8 Other specified behavioral and emotional disorders with onset usually occurring in childhood and adolescence; F41.9 Anxiety disorder, unspecified
CPT/HCPCS: 73502; 99213; G0463